=== PATIENT | female | born 1980 ===

== ENCOUNTER 2017-03-11 13:18 | Inpatient (IN) | payer MEDICAID ==
[2017-03-11] MEDS ORDERED: Iohexol 240 (50 ml) PO ONE (14:57)
[2017-03-11] MEDS ORDERED: Sodium Chloride 0.9% 1,000 ML IV ONE (14:59)
[2017-03-11] MEDS ORDERED: Iohexol 240 (50 ml) ONE (15:21)
--- NOTE | 2017-03-11 15:25 | ED PDOC ---
HPI: Abdomen Time Seen by Provider: 03/11/17 14:54 Chief Complaint (Nursing): Abdominal Pain History Per: Patient History/Exam Limitations: no limitations Onset/Duration Of Symptoms: Days (2), Gradual Current Symptoms Are (Timing): Constant Severity: Mild Location Of Pain/Discomfort: RLQ Quality Of Discomfort: Dull, Aching Associated Symptoms: Nausea, Vomiting. denies: Fever, Chills, Diarrhea, Loss Of Appetite, Back Pain, Chest Pain, Constipation, Urinary Symptoms Exacerbating Factors: None Alleviating Factors: None Last Bowel Movement: Yesterday Additional History Per: Patient Additional Complaint(s): stomach pain and vomiting for 2 days. sent by PMD for evaluation to r/o ap Abnormal Vaginal Bleeding: No Past Medical History Reviewed: Historical Data, Nursing Documentation, Vital Signs Vital Signs: Last Vital Signs Temp 97.9 F 03/11/17 13:34 Pulse 138 H 03/11/17 13:34 Resp BP 137/88 03/11/17 13:34 Pulse Ox 100 03/11/17 19:05 - Medical History PMH: No Chronic Diseases - Surgical History Surgical History: No Surg Hx - Family History Family History: States: Unknown Family Hx - Living Arrangements Living Arrangements: With Family - Social History Current smoker - smoking cessation education provided: No - Allergies Allergies/Adverse Reactions: Allergies Allergy/AdvReac Type Severity Reaction Status Date / Time No Known Allergies Allergy Verified 03/11/17 13:34 Physical Exam - Reviewed Nursing Documentation Reviewed: Yes Vital Signs Reviewed: Yes - Physical Exam Appears: Positive for: No Acute Distress, Uncomfortable Head Exam: Positive for: ATRAUMATIC, NORMAL INSPECTION, NORMOCEPHALIC Eye Exam: Positive for: Normal appearance, EOMI, PERRL Neck: Positive for: Normal, Painless ROM, Supple Cardiovascular/Chest: Positive for: Regular Rate, Rhythm, Chest Non Tender. Negative for: Edema, Gallop, Murmur, Bradycardia, Tachycardia Respiratory: Positive for: Normal Breath Sounds. Negative for: Decreased Breath Sounds, Accessory Muscle Use, Crackles, Rales, Rhonchi, Stridor, Wheezing Gastrointestinal/Abdominal: Positive for: Normal Exam, Bowel Sounds, Soft, Tenderness (mild rlq). Negative for: Organomegaly, Mass, Distended, Guarding, Rebound Back: Positive for: Normal Inspection. Negative for: L CVA Tenderness, R CVA Tenderness Extremity: Positive for: Normal ROM. 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 Negative for: Motor/Sensory Deficits - Laboratory Results Result Diagrams: 03/11/17 15:36 03/11/17 15:36 - ECG O2 Sat by Pulse Oximetry: 100 Pulse Ox Interpretation: Normal - Progress ED Course And Treament: Live single intrauterine with estimated gestational age 11 weeks 2 days by gestational sac calculation and 11 weeks 6 days by crown-rump length calculation. heart rate 155 bpm. Advise an anomaly screen at 16-18 weeks gestational age The right ovary is not visualized. surgery notified Fernando to admit Re-evaluation Time: 19:05 Condition: Improved Disposition - Clinical Impression Clinical Impression: Appendicitis - Patient ED Disposition Is Patient to be Admitted: Yes Counseled Patient/Family Regarding: Studies Performed, Diagnosis - Disposition Disposition Time: 19:05 Condition: STABLE - Pt Status Changed To: Hospital Disposition Of: Observation - POA Present On Arrival: None
[2017-03-11 15:51] LABS: BASO # 0.1 K/uL (0.0-0.2); BASO % 0.3 % (0.0-2.0); EOS % 0.1 % (0.0-4.0); HEMATOCRIT 32.1 % (34.0-47.0); LYMPH # 0.9 K/uL (1.0-4.3); LYMPH % 4.5 % (20.0-40.0); MEAN CELL VOLUME 68.6 fl (81.0-99.0); MEAN CORPUSCULAR HEMOGLOBIN 21.2 pg (27.0-31.0); MEAN CORPUSCULAR HGB CONC 30.9 g/dL (33.0-37.0); MEAN PLATELET VOLUME 7.6 fl (7.2-11.7); MONO # 1.8 K/uL (0.0-0.8); MONO % 8.7 % (0.0-10.0); NEUT # 17.7 K/uL (1.8-7.0); NEUT % 86.4 % (50.0-75.0); PLATELET COUNT 439 K/uL (130-400); RED CELL DISTRIBUTION WIDTH 16.2 % (11.5-14.5); WHITE BLOOD COUNT 20.5 K/uL (4.8-10.8)
[2017-03-11 15:59] LABS: ALB/GLOB RATIO 1.2 (1.0-2.1); ALKALINE PHOSPHATASE 94 U/L (38-126); ALT/SGPT 26 U/L (9-52); AMYLASE 64 U/L (30-110); AST/SGOT 19 U/L (14-36); BILIRUBIN,TOTAL 0.6 mg/dl (0.2-1.3); BLOOD UREA NITROGEN 5 mg/dl (7-17); CALCIUM 9.3 mg/dL (8.4-10.2); CARBON DIOXIDE 21 mmol/L (22-30); CHLORIDE 102 mmol/L (98-107); GFR AFRICAN-AMERICAN > 60; GLUCOSE,RANDOM 118 mg/dL (65-105); LIPASE 25 U/L (23-300); POTASSIUM 3.5 MMOL/L (3.6-5.0); SODIUM 139 mmol/l (132-148); TOTAL PROTEIN 7.6 G/DL (6.3-8.2)
[2017-03-11 16:05] LABS: RBC URINE 1 /hpf (0-3); URINE BILIRUBIN NEGATIVE (NEGATIVE); URINE BLOOD MODERATE (NEGATIVE); URINE COLOR YELLOW (YELLOW); URINE GLUCOSE (UA) NEG (Normal); URINE KETONE 20 mg/dL (NEGATIVE); URINE LEUKOCYTE ESTERASE NEG Leu/uL (Negative); URINE PROTEIN NEGATIVE (NEGATIVE); URINE UROBILINOGEN 0.2-1.0 mg/dL (0.2-1.0); WBC URINE 1 /hpf (0-5)
[2017-03-11] MEDS ORDERED: Ampicillin/Sulbactam 3 GM in Sodium Chloride 0.9% 100 ML IVPB STA (16:34)
[2017-03-11 17:31] LABS: NEUTROPHIL 87 % (42-75); TOTAL CELLS COUNTED 100
[2017-03-11] MEDS ORDERED: Sodium Chloride 0.9% 50 ML IV ONE (17:54)
[2017-03-11] MEDS ORDERED: Iohexol 350 MG/100 ML VIAL ONE (17:54)
--- NOTE | 2017-03-11 18:38 | CT ---
PROCEDURE: CT Abdomen and Pelvis with contrast HISTORY: abd pain rlq r/o appy COMPARISON: None. TECHNIQUE: Contrast dose: 90 mL of Omnipaque 350 Radiation dose: Total exam DLP = 507.66 mGy-cm. This CT exam was performed using one or more of the following dose reduction techniques: Automated exposure control, adjustment of the mA and/or kV according to patient size, and/or use of iterative reconstruction technique. FINDINGS: LOWER THORAX: Mild bilateral posterior dependent atelectasis seen. LIVER: Mild hepatomegaly and possible mild hepatic steatosis noted. The portal vein is patent. GALLBLADDER AND BILE DUCTS: Gallstones are seen without evidence of acute cholecystitis. PANCREAS: Unremarkable. No gross lesion or ductal dilatation. SPLEEN: Unremarkable. ADRENALS: Unremarkable. No mass. KIDNEYS AND URETERS: Unremarkable. No hydronephrosis. No solid mass. VASCULATURE: Unremarkable. No aortic aneurysm. BOWEL: Mild thickening of the distal small bowel loops especially the terminal ileum could be reactive from adjacent inflammatory/ infectious process. No evidence of colitis. No evidence of high-grade bowel obstruction. APPENDIX: The appendix has abnormal shape moderately enlarged surrounding with inflammatory changes suspicious for appendicitis. PERITONEUM: Trace amount of free fluid seen in the lower abdomen of uncertain etiology. LYMPH NODES: Unremarkable. No enlarged lymph nodes. BLADDER: Unremarkable. REPRODUCTIVE: Mild enlargement of the left adnexa. Low-attenuation 2.5 centimeter cystic lesions seen at the left ovary. Heterogeneous mildly enlarged uterus. Mildly enlarged right adnexa also noted. BONES: Sclerotic border lesion seen at the lateral aspect of the right femoral head of uncertain etiology and may represent benign lesion. OTHER FINDINGS: None. IMPRESSION: Findings highly suspicious for acute appendicitis. No evidence of discrete abscess formation or free air. Trace amount of free fluid seen in the lower abdomen of uncertain etiology. Sclerotic border bony lesion seen at the lateral aspect of the right femoral head may be benign. Mildly enlarged adnexa bilaterally. 2.5 centimeter low-attenuation cystic lesion at the left adnexa. Mildly enlarged heterogeneous uterus. If indicated further assessment by ultrasound may be obtained. Enlargement of the adnexa bilaterally. 2.5 centimeter low-attenuation cystic lesion at the left adnexa. Heterogeneous mildly enlarged uterus.
[2017-03-11] MEDS ORDERED: Sodium Chloride 0.9% 1,000 ML IV STA (19:59)
[2017-03-11] MEDS ORDERED: Sodium Chloride 0.9% 1,000 ML IV SCH ×3 (20:30→22:45)
--- NOTE | 2017-03-11 22:42 | CP.PCM.HP ---
<Chandler Amayaille - Last Filed: 03/11/17 22:39> History of Present Illness - History of Present Illness History of Present Illness: GENERAL SURGERY HISTORY AND PHYSICAL FOR DR. DOWNS 37yo F with no PMHx presents to the ED with abdominal pain and vomiting. The pain began yesterday morning and was located in the epigastric area. Then today , the pain spread to the lower abdomen with the worst pain in the RLQ. She took Tums yesterday which helped a little and Isaura seltzer today which did not relieve her symptoms. She vomited about 3-4 times non bloody. She denies diarrhea. Last BM was yesterday. Denies fever or chills. She went to her primary doctor today who did a physical exam and told her to come to the ED to rule out appendicitis. PMHx: none Surgeries: none Allergies: none Medications: none Social history: social etoh, denies tobacco or illicit drug use PMD: Dr. Toth Present on Admission - Present on Admission Any Indicators Present on Admission: No Review of Systems - Review of Systems All systems: reviewed and no additional remarkable complaints except (as per HPI ) Past Patient History - Past Social History Smoking Status: Never Smoked - PSYCHIATRIC Hx Substance Use: No Meds Allergies/Adverse Reactions: Allergies Allergy/AdvReac Type Severity Reaction Status Date / Time No Known Allergies Allergy Verified 03/11/17 13:34 Physical Exam - Constitutional Appears: Well, Non-toxic, No Acute Distress - Head Exam Head Exam: ATRAUMATIC, NORMAL INSPECTION - Eye Exam Eye Exam: EOMI, Normal appearance - Respiratory Exam Respiratory Exam: NORMAL BREATHING PATTERN. absent: Respiratory Distress - Cardiovascular Exam Cardiovascular Exam: Tachycardia - GI/Abdominal Exam GI & Abdominal Exam: Soft, Tenderness (tender in RUQ and RLQ (more)). absent: Distended, Firm, Guarding, Rebound, Rigid Additional comments: Negative Rovsing sign - Extremities Exam Extremities exam: Positive for: normal inspection - Neurological Exam Neurological exam: Alert, CN II-XII Intact, Oriented x3 - Psychiatric Exam Psychiatric exam: Anxious - Skin Skin Exam: Dry, Normal Color, Warm Results - Vital Signs Recent Vital Signs: Last Vital Signs Temp 99.4 F 03/11/17 22:32 Pulse 127 H 03/11/17 22:32 Resp 18 03/11/17 22:32 BP 118/81 04/17/17 22:32 Pulse Ox 100 03/11/17 22:32 - Labs Result Diagrams: 03/11/17 15:36 03/11/17 15:36 Assessment & Plan - Assessment and Plan (Free Text) Assessment: 37yo F with no PMHx who presented to the ED with abdominal pain and vomiting and was found to have acute appendicitis - Afebrile - Tachycardia with HR 130s, EKG done, boluses given, admitting pt to tele - Leukocytosis WBC 20.5 - Hypokalemia of 3.5 - CT: appendix has abnormal shape moderately enlarged with surrounding inflammatory changes - suspicious for appendicitis; mild thickening of distal small bowel loops, especially TI, could be reactive from adjacent inflammatory process; cholelithiasis; trace free fluid; left ovarian cysts - NPO - IV Fluids - Zosyn - Morphine and Zofran PRN - OR tomorrow morning for laparoscopic appendectomy - Consent obtained and in the chart - Discussed plan with Dr. Fernando Amaya PGY-2 <Angel Downs - Last Filed: 03/17/17 10:38> Results - Vital Signs Recent Vital Signs: Last Vital Signs Temp 98.2 F 03/14/17 15:45 Pulse 97 H 03/14/17 15:45 Resp 18 03/14/17 15:45 BP 108/70 03/14/17 15:45 Pulse Ox 99 03/14/17 15:45 - Labs Result Diagrams: 03/14/17 04:10 03/13/17 04:45 Attending/Attestation - Attestation I have personally seen and examined this patient.: Yes I have fully participated in the care of the patient.: Yes I have reviewed all pertinent clinical information: Yes Notes (Text): 03/17/17 10:37 Pt was seen and examined at bedside on 03/12/17 Agree with above note and assessment Pt with Acute Appendicitis with SIRS OR for Lap Appendectomy possible Open Consent C.w IV antibiotics Plan d.w pt in detail Risk and benefit explained in detail.
[2017-03-11] MEDS ORDERED: Piperacillin/Tazobact 3.375 gm Inj IVPB ONE (23:18)
[2017-03-11] MEDS: Piperacillin/Tazobact 3.375 GM in Sodium Chloride 0.9% 100 ML IVPB SCH (23:25)
[2017-03-12] MEDS: Piperacillin/Tazobact 3.375 GM in Sodium Chloride 0.9% 100 ML IVPB SCH ×4 (05:16→21:31)
[2017-03-12 07:06] LABS: BLOOD UREA NITROGEN 4 mg/dl (7-17); CALCIUM 8.1 mg/dL (8.4-10.2); CARBON DIOXIDE 20 mmol/L (22-30); CHLORIDE 110 mmol/L (98-107); GFR AFRICAN-AMERICAN > 60; GLUCOSE,RANDOM 113 mg/dL (65-105); SODIUM 144 mmol/l (132-148)
[2017-03-12] MEDS ORDERED: Propofol 10 mg/ml Inj (20 ML) ONE ×2 (07:10→08:49)
[2017-03-12] MEDS ORDERED: Midazolam 2 MG/2 ML VIAL ONE (07:10)
[2017-03-12] MEDS ORDERED: Rocuronium 10 mg/ml (5 ml) ONE (07:11)
[2017-03-12] MEDS ORDERED: Succinylcholine 200 mg/10 ml Inj IV ONE (07:11)
[2017-03-12 07:14] LABS: BASO # 0.1 K/uL (0.0-0.2); BASO % 0.5 % (0.0-2.0); EOS % 0.1 % (0.0-4.0); HEMATOCRIT 29.9 % (34.0-47.0); LYMPH # 0.8 K/uL (1.0-4.3); LYMPH % 3.8 % (20.0-40.0); MEAN CELL VOLUME 68.7 fl (81.0-99.0); MEAN CORPUSCULAR HEMOGLOBIN 21.1 pg (27.0-31.0); MEAN CORPUSCULAR HGB CONC 30.7 g/dL (33.0-37.0); MONO # 1.7 K/uL (0.0-0.8); MONO % 7.9 % (0.0-10.0); NEUT # 18.4 K/uL (1.8-7.0); NEUT % 87.7 % (50.0-75.0); RED CELL DISTRIBUTION WIDTH 16.8 % (11.5-14.5)
[2017-03-12 07:37] LABS: PARTIAL THROMBOPLASTIN TIME 34.1 SECONDS (23.3-32.5)
[2017-03-12] MEDS ORDERED: Dexamethasone 4 mg/1 ml ONE (08:01)
[2017-03-12] MEDS: Bupivacaine 0.5% Inj(30mL) ONE ×2 (08:11→09:23)
[2017-03-12] MEDS ORDERED: Neostigmine Methylsulfate 3mg/3ml Syringe IV ONE (08:40)
[2017-03-12] MEDS ORDERED: Lactated Ringer's 1,000 ML IV ONE ×3 (09:25→09:30)
[2017-03-12] MEDS ORDERED: HYDROmorphone 0.5 mg/0.5 ml ISec IVP PRN (09:34)
[2017-03-12] MEDS ORDERED: Lactated Ringer's 1,000 ML IV SCH (09:45)
--- NOTE | 2017-03-12 09:51 | PCM.SURG1 ---
Surgeon's Initial Post Op Note - Surgeon's Notes Surgeon: Dr. King Snow Blower: Dr. Lepe PGY3; Dr Boone PGY2 Type of Anesthesia: General Endo Pre-Operative Diagnosis: Acute Appendicitis Operative Findings: acute suppurative appendicitis w/ microperforation Post-Operative Diagnosis: Acute appendicitis Operation Performed: Laparoscopic Appendectomy Specimen/Specimens Removed: appendix Estimated Blood Loss: EBL {In ML}: 10 Blood Products Given: N/A Drains Used: Jude Post-Op Condition: Good Date of Surgery/Procedure: 03/12/17 Time of Surgery/Procedure: 09:52
[2017-03-12] MEDS ORDERED: Potassium Chloride 20 mEq/15 ml LIQ UD PO ONE (12:00)
[2017-03-12] MEDS: Potassium CL 10 MEQ/50 ML 50 ML IVPB SCH ×4 (12:09→16:57)
[2017-03-13] MEDS: Piperacillin/Tazobact 3.375 GM in Sodium Chloride 0.9% 100 ML IVPB SCH ×4 (05:18→21:37)
[2017-03-13 06:54] LABS: BASO # 0.1 K/uL (0.0-0.2); BASO % 0.3 % (0.0-2.0); EOS % 0.1 % (0.0-4.0); HEMATOCRIT 29.3 % (34.0-47.0); LYMPH # 1.6 K/uL (1.0-4.3); LYMPH % 8.2 % (20.0-40.0); MEAN CELL VOLUME 69.3 fl (81.0-99.0); MEAN CORPUSCULAR HEMOGLOBIN 21.4 pg (27.0-31.0); MEAN CORPUSCULAR HGB CONC 30.9 g/dL (33.0-37.0); MEAN PLATELET VOLUME 8.2 fl (7.2-11.7); MONO # 1.7 K/uL (0.0-0.8); NEUT # 15.9 K/uL (1.8-7.0); NEUT % 82.4 % (50.0-75.0); RED CELL DISTRIBUTION WIDTH 16.6 % (11.5-14.5); WHITE BLOOD COUNT 19.3 K/uL (4.8-10.8)
[2017-03-13 07:04] LABS: BLOOD UREA NITROGEN 6 mg/dl (7-17); CALCIUM 8.5 mg/dL (8.4-10.2); CARBON DIOXIDE 21 mmol/L (22-30); CHLORIDE 108 mmol/L (98-107); GFR AFRICAN-AMERICAN > 60; GLUCOSE,RANDOM 113 mg/dL (65-105); POTASSIUM 4.3 MMOL/L (3.6-5.0); SODIUM 143 mmol/l (132-148)
--- NOTE | 2017-03-13 07:54 | CP.PCM.PN ---
<BooneEugenia nina - Last Filed: 03/13/17 07:52> Subjective - Date & Time of Evaluation Date of Evaluation: 03/13/17 Time of Evaluation: 07:52 - Subjective Subjective: General Surgery - Dr. King Pt S&E> NAEO. Pt states her pain is improved after the surgery. She tolerated regular diet yesterday. She is ambulating and passing flatus. No N/V , F/C, SOB/Cp. Jude drain in suprapubic incision w/ serosanguinous drainage, 50cc/12hrs. Objective - Vital Signs/Intake and Output Vital Signs (last 24 hours): Temp Pulse Resp BP Pulse Ox 98.0 F 94 H 18 100/66 98 03/13/17 05:05 03/13/17 05:05 03/13/17 05:05 03/13/17 05:05 03/13/17 05:05 - Medications Medications: Current Medications Piperacillin Sod/Tazobactam (Sod 3.375 gm/ Sodium Chloride) 100 mls @ 100 mls/ hr IVPB Q6 ROSE Last Admin: 03/13/17 05:18 Dose: 100 mls/hr Morphine Sulfate (Morphine) 4 mg IVP Q4 PRN PRN Reason: Pain, moderate (4-7) Last Admin: 03/13/17 01:44 Dose: 4 mg Ondansetron HCl (Zofran Inj) 4 mg IVP Q4 PRN PRN Reason: Nausea/Vomiting Last Admin: 03/12/17 05:21 Dose: 4 mg - Labs Labs: 03/13/17 04:45 03/13/17 04:45 PT 12.5 SECONDS (9.6-11.2) H 03/12/17 05:00 INR 1.20 (0.92-1.08) H 03/12/17 05:00 APTT 34.1 SECONDS (23.3-32.5) H 03/12/17 05:00 - Constitutional Appears: Well, No Acute Distress - Head Exam Head Exam: ATRAUMATIC, NORMOCEPHALIC - Eye Exam Eye Exam: Normal appearance - ENT Exam ENT Exam: Mucous Membranes Moist - Respiratory Exam Respiratory Exam: NORMAL BREATHING PATTERN. absent: Respiratory Distress - Cardiovascular Exam Cardiovascular Exam: REGULAR RHYTHM - GI/Abdominal Exam GI & Abdominal Exam: Soft. absent: Distended, Firm, Guarding, Rigid, Tenderness Additional comments: jude drain in suprapubic incision w/ serosanguinous drainage, 50cc/12hrs - Neurological Exam Neurological Exam: Alert, Oriented x3 - Psychiatric Exam Psychiatric exam: Normal Affect, Normal Mood - Skin Skin Exam: Dry, Intact Assessment and Plan - Assessment and Plan (Free Text) Assessment: 37yo F s/p lap appendectomy for supperative appendicitis -Continue Regular diet -Encourage Ambulation -Monitor drain output -WBC trending down, 19.3 today -Will DW Dr. Fernando Boone PGY2 <Angel King B - Last Filed: 03/17/17 10:46> Objective - Vital Signs/Intake and Output Vital Signs (last 24 hours): Temp Pulse Resp BP Pulse Ox 98.2 F 97 H 18 108/70 99 03/14/17 15:45 03/14/17 15:45 03/14/17 15:45 03/14/17 15:45 03/14/17 15:45 - Labs Labs: 03/14/17 04:10 03/13/17 04:45 PT 12.5 SECONDS (9.6-11.2) H 03/12/17 05:00 INR 1.20 (0.92-1.08) H 03/12/17 05:00 APTT 34.1 SECONDS (23.3-32.5) H 03/12/17 05:00 Attending/Attestation - Attestation I have personally seen and examined this patient.: Yes I have fully participated in the care of the patient.: Yes I have reviewed all pertinent clinical information, including history, physical exam and plan: Yes Notes (Text): 03/17/17 10:46 Pt was seen and examined at bedside on 03/13/17 Agree with above note and assessment C.w IV antibiotics Plan d.w pt in detail
[2017-03-13] MEDS ORDERED: Oxycodone/Acetaminophen 5/325 mg Tab PO PRN (07:56)
--- NOTE | 2017-03-13 11:46 | CARD ---
APPROVED REPORT EKG Measurement Heart [id number] MA [id number] <Conclusion> Sinus tachycardia Possible Anterior infarct, age undetermined Abnormal ECG
[2017-03-14] MEDS: metroNIDAZOLE 500mg/100ml NS 100 ML IVPB SCH ×3 (00:19→16:12)
[2017-03-14] MEDS: Piperacillin/Tazobact 3.375 GM in Sodium Chloride 0.9% 100 ML IVPB SCH ×4 (03:27→16:20)
[2017-03-14 05:35] LABS: BASO # 0.1 K/uL (0.0-0.2); BASO % 0.8 % (0.0-2.0); EOS # 0.5 K/uL (0.0-0.7); LYMPH # 2.1 K/uL (1.0-4.3); LYMPH % 22.7 % (20.0-40.0); MEAN CELL VOLUME 68.8 fl (81.0-99.0); MEAN CORPUSCULAR HEMOGLOBIN 21.7 pg (27.0-31.0); MEAN CORPUSCULAR HGB CONC 31.6 g/dL (33.0-37.0); MEAN PLATELET VOLUME 7.7 fl (7.2-11.7); MONO # 0.8 K/uL (0.0-0.8); MONO % 9.3 % (0.0-10.0); NEUT # 5.7 K/uL (1.8-7.0); NEUT % 62.2 % (50.0-75.0); RED CELL DISTRIBUTION WIDTH 16.6 % (11.5-14.5); WHITE BLOOD COUNT 9.1 K/uL (4.8-10.8)
--- NOTE | 2017-03-14 10:00 | CP.PCM.PN ---
Subjective - Date & Time of Evaluation Date of Evaluation: 03/14/17 Time of Evaluation: 09:30 - Subjective Subjective: General Surgery - Dr. King Pt S&E> NAEO. Pt states her pain is improved after the surgery. She continues to tolerate regular diet. She is ambulating and passing flatus. No N /V, F/C, SOB/Cp. Lesvia drain in suprapubic incision w/ serosanguinous drainage , 40cc/12hrs. Objective - Vital Signs/Intake and Output Vital Signs (last 24 hours): Temp Pulse Resp BP Pulse Ox 98.2 F 96 H 20 103/68 98 03/14/17 08:06 03/14/17 08:06 03/14/17 08:06 03/14/17 08:06 03/14/17 08:06 - Medications Medications: Current Medications Piperacillin Sod/Tazobactam (Sod 3.375 gm/ Sodium Chloride) 100 mls @ 100 mls/ hr IVPB Q6 ROSE Last Admin: 03/14/17 09:41 Dose: 100 mls/hr Metronidazole (Flagyl 500mg/100ml Ns) 100 mls @ 100 mls/hr IVPB Q8 ROSE Last Admin: 03/14/17 09:40 Dose: 100 mls/hr Morphine Sulfate (Morphine) 4 mg IVP Q4 PRN PRN Reason: Pain, moderate (4-7) Last Admin: 03/13/17 10:09 Dose: 4 mg Ondansetron HCl (Zofran Inj) 4 mg IVP Q4 PRN PRN Reason: Nausea/Vomiting Last Admin: 03/12/17 05:21 Dose: 4 mg Oxycodone/Acetaminophen (Percocet 5/325 Mg Tab) 2 tab PO Q4 PRN PRN Reason: Pain, moderate (4-7) Stop: 03/16/17 07:57 Last Admin: 03/13/17 21:41 Dose: 2 tab - Labs Labs: 03/14/17 04:10 03/13/17 04:45 PT 12.5 SECONDS (9.6-11.2) H 03/12/17 05:00 INR 1.20 (0.92-1.08) H 03/12/17 05:00 APTT 34.1 SECONDS (23.3-32.5) H 03/12/17 05:00 - Constitutional Appears: Well, No Acute Distress - Eye Exam Eye Exam: EOMI, Normal appearance - ENT Exam ENT Exam: Mucous Membranes Moist, Normal Exam - Respiratory Exam Respiratory Exam: Chest Wall Tenderness, Decreased Breath Sounds, NORMAL BREATHING PATTERN - GI/Abdominal Exam GI & Abdominal Exam: Soft, Normal Bowel Sounds Additional comments: lesvia drain in suprapubic incision w/ serosanguinous drainage, 40cc/12hrs - Neurological Exam Neurological Exam: Alert, Awake, Oriented x3 - Psychiatric Exam Psychiatric exam: Normal Affect, Normal Mood Assessment and Plan - Assessment and Plan (Free Text) Assessment: 37yo F s/p lap appendectomy for supperative appendicitis Plan: -Continue Regular diet -Ambulation -Monitor drain output -WBC trending down, 9.1 today -Lesvia Drain removed -Pt prescribed oral Flagyl, Levaquin, and Percocet 5/235mg for outpatient use. -John King
[2017-03-14 15:46] VITALS: BP 108/70; PULSE 97; RESP 18; TEMP 98.2; O2SAT 99
--- NOTE | 2017-03-14 16:36 | CP.PCM.DIS ---
Provider - Provider Date of Admission: 03/11/17 22:33 Attending physician: Janice Amaya DO Primary care physician: Dr. Piotr Toth MD Consults: none Time Spent in preparation of Discharge (in minutes): 15 Hospital Course - Lab Results Lab Results: Most Recent Lab Values WBC 9.1 K/uL (4.8-10.8) D 03/14/17 04:10 RBC 3.78 Mil/uL (3.80-5.20) L 03/14/17 04:10 Hgb 8.2 g/dL (12.0-16.0) L 03/14/17 04:10 Hct 26.0 % (34.0-47.0) L 03/14/17 04:10 MCV 68.8 fl (81.0-99.0) L 03/14/17 04:10 MCH 21.7 pg (27.0-31.0) L 03/14/17 04:10 MCHC 31.6 g/dL (33.0-37.0) L 03/14/17 04:10 RDW 16.6 % (11.5-14.5) H 03/14/17 04:10 Plt Count 434 K/uL (130-400) H 03/14/17 04:10 MPV 7.7 fl (7.2-11.7) 03/14/17 04:10 Neut % (Auto) 62.2 % (50.0-75.0) 03/14/17 04:10 Lymph % (Auto) 22.7 % (20.0-40.0) 03/14/17 04:10 Bland % (Auto) 9.3 % (0.0-10.0) 03/14/17 04:10 Eos % (Auto) 5.0 % (0.0-4.0) H 03/14/17 04:10 Baso % (Auto) 0.8 % (0.0-2.0) 03/14/17 04:10 Neut # 5.7 K/uL (1.8-7.0) 03/14/17 04:10 Lymph # 2.1 K/uL (1.0-4.3) 03/14/17 04:10 Bland # 0.8 K/uL (0.0-0.8) 03/14/17 04:10 Eos # 0.5 K/uL (0.0-0.7) 03/14/17 04:10 Baso # 0.1 K/uL (0.0-0.2) 03/14/17 04:10 Neutrophils % (Manual) 87 % (42-75) H 03/11/17 15:36 Lymphocytes % (Manual) 5 % (20-50) L 03/11/17 15:36 Monocytes % (Manual) 8 % (0-10) 03/11/17 15:36 Platelet Estimate Increased (NORMAL) H 03/11/17 15:36 Anisocytosis (manual) Slight 03/11/17 15:36 PT 12.5 SECONDS (9.6-11.2) H 03/12/17 05:00 INR 1.20 (0.92-1.08) H 03/12/17 05:00 APTT 34.1 SECONDS (23.3-32.5) H 03/12/17 05:00 Sodium 143 mmol/l (132-148) 03/13/17 04:45 Potassium 4.3 MMOL/L (3.6-5.0) 03/13/17 04:45 Chloride 108 mmol/L (98-107) H 03/13/17 04:45 Carbon Dioxide 21 mmol/L (22-30) L 03/13/17 04:45 Anion Gap 18 (10-20) 03/13/17 04:45 BUN 6 mg/dl (7-17) L 03/13/17 04:45 Creatinine 0.6 mg/dL (0.7-1.2) L 03/13/17 04:45 Est GFR ( Amer) > 60 03/13/17 04:45 Est GFR (Non-Af Amer) > 60 03/13/17 04:45 Random Glucose 113 mg/dL (65-105) H 03/13/17 04:45 Calcium 8.5 mg/dL (8.4-10.2) 03/13/17 04:45 Total Bilirubin 0.6 mg/dl (0.2-1.3) 03/11/17 15:36 AST 19 U/L (14-36) 03/11/17 15:36 ALT 26 U/L (9-52) 03/11/17 15:36 Alkaline Phosphatase 94 U/L (38-126) 03/11/17 15:36 Total Protein 7.6 G/DL (6.3-8.2) 03/11/17 15:36 Albumin 4.1 g/dL (3.5-5.0) 03/11/17 15:36 Globulin 3.5 gm/dL (2.2-3.9) 03/11/17 15:36 Albumin/Globulin Ratio 1.2 (1.0-2.1) 03/11/17 15:36 Amylase 64 U/L (30-110) 03/11/17 15:36 Lipase 25 U/L (23-300) 03/11/17 15:36 Urine Color Yellow (YELLOW) 03/11/17 15:52 Urine Clarity Clear (Clear) 03/11/17 15:52 Urine pH 7.0 (5.0-8.0) 03/11/17 15:52 Ur Specific [place] 1.009 (1.003-1.030) 03/11/17 15:52 Urine Protein Negative mg/dL (NEGATIVE) 03/11/17 15:52 Urine Glucose (UA) Neg mg/dL (Normal) 03/11/17 15:52 Urine Ketones 20 mg/dL (NEGATIVE) 03/11/17 15:52 Urine Blood Moderate (NEGATIVE) 03/11/17 15:52 Urine Nitrate Negative (NEGATIVE) 03/11/17 15:52 Urine Bilirubin Negative (NEGATIVE) 03/11/17 15:52 Urine Urobilinogen 0.2-1.0 mg/dL (0.2-1.0) 03/11/17 15:52 Ur Leukocyte Esterase Neg Greyson/uL (Negative) 03/11/17 15:52 Urine RBC (Auto) 1 /hpf (0-3) 03/11/17 15:52 Urine Microscopic WBC 1 /hpf (0-5) 03/11/17 15:52 Ur Squamous Epith Cells 1 /hpf (0-5) 03/11/17 15:52 Blood Type O POSITIVE 03/12/17 05:00 Antibody Screen Negative 03/12/17 05:00 BBK History Checked Patient has bt 03/12/17 05:00 - Hospital Course Hospital Course: 37 year old female was admitted to [facility] from emergency department on 03/11/17 for abdominal pain and vomiting and Leukocytosis of 20.5 K/uL. CAT scan found positive for acute appendicitis. Pt admitted for antibiotic regimen (Zosyn) & analgesic control (morphine & Percocet) while surgical intervention planned. On 03/12/17 pt takin to operating room for successful Laparoscopic Appendectomy, Jude drain applied at this time. Pt found to have continued leukocytosis of 19.3 K/uL on 03/11/17, added Flagyl to antibiotic regimen, post-op monitoring continued. 03/14/17 patient's WBC decreased to 9.1 K/uL, Jude Drain removed. Pt clear for discharge at this time. Pt prescribed a 14 day supply of Levaquin 500mg daily and Flagyl 500 3x daily for outpatient use. Prescribed Percocet 5/ 325mg for analgesic control. - Date & Time of H&P Date of H&P: 03/11/17 Time of H&P: 22:40 Discharge Exam - Head Exam Head Exam: ATRAUMATIC, NORMOCEPHALIC - Eye Exam Eye Exam: Normal appearance, PERRL - ENT Exam ENT Exam: Mucous Membranes Moist, Normal Exam - Respiratory Exam Respiratory Exam: NORMAL BREATHING PATTERN, UNREMARKABLE. absent: Chest Wall Tenderness, Decreased Breath Sounds - Cardiovascular Exam Cardiovascular Exam: REGULAR RHYTHM, +S1, +S2 - GI/Abdominal Exam GI & Abdominal Exam: Soft, Tenderness (along incison sites. ), Unremarkable. absent: Rebound, Rigid - Extremities Exam Extremities exam: full ROM - Neurological Exam Neurological exam: Alert, Normal Gait, Oriented x3 - Psychiatric Exam Psychiatric exam: Normal Affect, Normal Mood - Skin Skin Exam: Intact, Normal Color, Warm Discharge Plan - Discharge Medications Prescriptions: Levofloxacin [Levaquin] 500 mg PO DAILY #14 tablet Metronidazole [Flagyl] 500 mg PO TID #42 tab oxyCODONE/Acetaminophen [Percocet 5/325 mg Tab] 1 tab PO Q4 PRN #10 tab PRN Reason: Pain, Moderate (4-7) - Follow Up Plan Condition: STABLE Disposition: HOME/ ROUTINE Patient education suggested?: No Additional Instructions: You may shower, no bathing. You may resume regular diet and light activities. Avoid any heavy lifting >10lbs for at least 4 weeks. Take Antibiotics as prescribed for full 2 weeks. You may take percocet as needed for pain, or Tylenol/Motrin OTC if preferred. F/U in office with Dr. King in 2 weeks. Referrals: Angel King MD [Staff Provider] - Clinical Quality Measures - CQM - Heart Failure Follow Up Date (must be within 7 days from discharge): 03/21/17 Follow Up Time: 09:00 - Date & Time of Discharge Summary Date of Discharge Summary: 03/14/17 Time of Discharge Summary: 16:38
--- NOTE | 2017-03-17 14:26 | OP ---
PROCEDURE DATE: 03/12/2017 PREOPERATIVE DIAGNOSES: Acute appendicitis with leukocytosis. POSTOPERATIVE DIAGNOSES: 1. Acute perforated phlegmonous appendicitis. 2. Pelvic purulent collection. PROCEDURES DONE: 1. Laparoscopic appendectomy. 2. Laparoscopic extensive lysis of adhesions of the phlegmonous mass. 3. Laparoscopic drainage of the pelvic abscess and the periappendicular abscess. SURGEON: Angel King MD ASSISTANTS: Luc Lepe and denice Boone, PGY-2 resident ANESTHESIA: General endotracheal tube anesthesia. ESTIMATED BLOOD LOSS: Around 20 mL. DRAINS: The 19-[place] Jude drain was placed in the pelvis. COMPLICATIONS: None. INTRAOPERATIVE FINDINGS: The patient had a phlegmonous perforated acute appendicitis with periappendicular and pelvic abscess as well as a perihepatic abscess. INTRAOPERATIVE STEPS: This is 37-year-old female who was diagnosed with acute appendicitis with leukocytosis with SIRS and the patient was consented for the laparoscopic appendectomy, possible open, possible drainage of the abscess and brought to the OR, placed supine on the operating table. After induction of the anesthesia, the Martinez catheter and the NG tube were placed and the abdomen was prepped and draped. A supraumbilical incision was made. After incising skin and subcutaneous tissue and fascia, the Toby port was placed. Pneumo was created. The 12 mm port was placed in left lower quadrant, 5 mm port was placed in suprapubic region. Grasper and dissector were introduced. The patient found to have large phlegmon of the small bowel, cecum, appendix and the colon as well as periappendicular, pelvic and perihepatic abscess. First, extensive lysis of adhesion was done to find appendix base, body of the appendix as well as the tip of the appendix and appendix was dissected free from the lateral pelvic wall and the mesoappendix was resected with Harmonic scalpel. The base of the appendix was resected with a MAR. Appendix was taken in EndoCatch bag, taken out through the umbilical port site and sent to the table for the pathology. The pelvic abscess, periappendicular and perihepatic abscess were suction irrigated. Due to the extensive amount of the pus, the drain was placed and hemostasis was achieved. All the ports were taken out under vision. Pneumo was deflated. Umbilical port site was closed in 2 layers , fascia with 0 Vicryl interrupted sutures, skin with 4-0 Monocryl. Dry sterile dressing was applied. The patient tolerated the procedure well. Count of instrument and gauze was correct. There was no apparent complication. The patient was sent to the postanesthesia care unit in stable condition. Angel King MD cc: [id number] TT: 03/17/2017 13:08:00 en 03/17/2017 13:26:03 ROBERT
== END 2017-03-14 18:00 | disposition home or self-care (01) | DRG 150 ==
LOC: H.ER 13:18 → H.ERHOLD 19:16 → OBSVTOIN 22:33 → H.TEL 03-12 02:47
PROVIDERS: ADMIT Surgery Surgical Oncology; ATTEND Surgery Surgical Oncology
PROC: 0DNJ4ZZ Release Appendix, Percutaneous Endoscopic Approach (ICD-10-PCS; 2017-03-12)
PROC: 0W9G40Z Drainage of Peritoneal Cavity with Drainage Device, Percutaneous Endoscopic Approach (ICD-10-PCS; 2017-03-12)
PROC: 0DTJ4ZZ Resection of Appendix, Percutaneous Endoscopic Approach (ICD-10-PCS; principal; 2017-03-12 08:00)
DX: K35.2 Acute appendicitis with generalized peritonitis (principal); E87.6 Hypokalemia; K35.3 Acute appendicitis with localized peritonitis; K66.0 Peritoneal adhesions (postprocedural) (postinfection)